=== PATIENT | male | born 1965 | race Caucasian/White ===

== ENCOUNTER 2025-07-05 08:09 | Emergency (ER) | payer SELFPAY ==
[2025-07-05] MEDS: Lidocaine 2% Jelly 10 ML Urojet MUCMEM ONE (08:20)
[2025-07-05] MEDS ORDERED: Naloxone 0.4 MG/ML SDV IVPUSH PRN (09:57)
[2025-07-05 10:47] LABS: GLUCOSE,URINE 100 mg/dL (NEGATIVE); OCCULT BLOOD,URINE LARGE (NEGATIVE)
[2025-07-05 10:57] LABS: APPEARANCE,URINE SLIGHTLY CLOUDY (CLEAR)
[2025-07-05 10:58] LABS: SQUAMOUS EPITHELIAL CELLS,UR NOT SEEN /HPF; UROTHELIAL CELLS,URINE NOT SEEN /HPF
== END 2025-07-05 11:27 | disposition home or self-care (01) ==
LOC: JP.ED 08:09
DX: R33.9 Retention of urine, unspecified (principal); Z79.84 Long term (current) use of oral hypoglycemic drugs; Z79.899 Other long term (current) drug therapy
CPT/HCPCS: 51702; 81001; 96372; 99283; J1171; J2003